=== PATIENT | male | born 1960 | race Two or more races ===

== ENCOUNTER 2018-06-27 07:27 | Day surgery (SDC) | payer OTHER ==
[~2018-06-27] VITALS: Ht 180.3 cm; Wt 95.3 kg
[2018-06-27] MEDS ORDERED: MIDAZOLAM 2 MG/2 ML VIAL ONE (11:44)
[2018-06-27] MEDS ORDERED: fentaNYL 0.05 MG/ML VIAL ONE (11:44)
[2018-06-27] MEDS ORDERED: LIDOCAINE 2% 100 MG/5 ML UJET TP ONE (11:44)
[2018-06-27] MEDS ORDERED: MIDAZOLAM 2 MG/2 ML VIAL IVP ONE (13:10)
== END 2018-06-27 13:00 | disposition home or self-care (01) ==
LOC: MDS 07:27 → MMU 07:37 → MDS 13:00
PROVIDERS: ATTEND Internal Medicine Gastroenterology
DX: K21.0 Gastro-esophageal reflux disease with esophagitis (principal); K64.8 Other hemorrhoids; K31.89 Other diseases of stomach and duodenum; I10 Essential (primary) hypertension; E66.9 Obesity, unspecified; Z68.29 Body mass index [BMI] 29.0-29.9, adult; Z88.5 Allergy status to narcotic agent; Z88.8 Allergy status to other drugs, medicaments and biological substances; Z79.899 Other long term (current) drug therapy; Z98.890 Other specified postprocedural states
CPT/HCPCS: 36415; 43239; 45330; 86677; J2250; J3010

== ENCOUNTER 2024-02-07 11:24 | Outpatient (CLI) | payer OTHER | END 2024-02-07 17:47 | disposition home or self-care (01) | LOC: MUS 11:24 | PROVIDERS: ATTEND Family Medicine | DX: M79.651 Pain in right thigh (principal); M79.89 Other specified soft tissue disorders | CPT/HCPCS: 93971 ==